=== PATIENT | female | born 1945 | race Caucasian/White ===

== ENCOUNTER 2019-11-17 09:16 | Day surgery (SDC) | payer OTHER, MEDICARE ==
[2019-11-14 11:24] LABS: Absolute Lymphocytes (CBC) 2.7 K/uL (0.7-4.9); Basophils % 0.7 % (0-1.3); Hematocrit 35.2 % (36.0-45.0); RBC Red Blood Cell Count 3.88 M/uL (3.86-4.86)
[2019-11-14 11:26] LABS: Protime INR 0.96
[2019-11-14 11:28] LABS: Potassium 4.8 mmol/L (3.5-5.1)
[2019-11-14 12:21] LABS: Urine Appearance CLEAR; Urine Bilirubin NEGATIVE (NEG); Urine Blood NEGATIVE (NEG); Urine Color YELLOW; Urine Glucose NEGATIVE (NEG); Urine Microscopic Reflex NO UMIC; Urine Protein NEGATIVE (NEG); Urine Specific Gravity 1.015 (1.005-1.030); Urine Urobilinogen 0.2 mg/dL (0.2-1.0); Urine pH 5.5 (5.0-7.0)
--- OUTSIDE RECORDS SUMMARY | 2019-11-17 09:20 | XMS REPORT ---
:1945 Author Organization [employer] Care Team Providers Name Role Phone Sade Schmid Provider Role Unavailable Allergies, Adverse Reactions, Alerts Substance Reaction Event Type penicillin Swelling Drug Allergy Problems Problem Type Condition Code Onset Dates Condition Status Assessment Chronic pain syndrome G89.4 Active Assessment Polyarthralgia M25.50 Active Problem Reflux K21.9 Active Assessment History of recurrent UTI (urinary Z87.440 Active tract infection) Problem Low back pain M54.5 Active Assessment Urinary incontinence, unspecified R32 Active type Problem Chronic diarrhea K52.9 Active Problem Hypertension, unspecified type I10 Active Problem Vaginal lesion N89.8 Active Problem Obesity (BMI 30.0-34.9) E66.9 Active Problem Polyarthralgia M25.50 Active Assessment Hypertension, unspecified type I10 Active Problem Chronic pain syndrome G89.4 Active Assessment Obesity (BMI 30.0-34.9) E66.9 Active Problem Ulcer L98.499 Active Problem Urinary incontinence, unspecified R32 Active type Problem Chest pain, unspecified type R07.9 Active Problem High blood pressure I10 Active Problem Abnormal urinalysis R82.90 Active Problem Swelling R60.9 Active Problem Diverticulitis K57.92 Active Problem Vaginal burning N94.9 Active Problem Other chronic pain G89.29 Active Problem Pain in right knee M25.561 Active Problem Pain in left knee M25.562 Active Problem History of recurrent UTI (urinary Z87.440 Active tract infection) Medications Medication Code Code Instructions Start End Status Dosage System Date Date Pantoprazole ND 31611624186 40 MG Orally Active 1 tablet Sodium Once a day Aleve ND 60089791692 220 MG Orally Active 1 tablet every 12 hrs with food or milk as needed Benazepril HCl ND 18094748227 20 MG Orally Active 1 tablet Once a day Spironolactone ND 02478785091 25 MG Orally Active 1 tablet Once a day Anti-Diarrheal ND 15844786442 2 MG Orally Active 2 tablets Twice a day as needed Aspirin Adult Low [facility] 80416070611 81 MG Orally Active 1 tablet Dose Once a day Oxybutynin [facility] 59609364819 15 MG Oral Active TAKE 1 Chloride ER TABLET BY MOUTH ONCE DAILY Metoprolol [facility] 69741830524 50 MG Orally Active 1 tablet Succinate ER Once a day ProAir HFA [facility] 55056676522 108 (90 Base) Jul 28, Active 2 puffs as MCG/ACT 2019 needed for Inhalation coughing every 4-6 hrs spasms/sob /wheezing Citalopram [facility] 49684031477 20 mg Orally Active 1 tablet Hydrobromide Once a day Cranberry [facility] 85852132059 425 MG Orally Active as directed Isosorbide [facility] 64959312005 30 MG Oral Active TAKE 1 Mononitrate ER TABLET BY MOUTH ONCE DAILY IN THE MORNING FOR 90 DAYS Results No Known Results Summary Purpose [employer]ClinicalWorks Submission
--- OUTSIDE RECORDS SUMMARY | 2019-11-17 09:20 | XMS REPORT ---
:1945 Author Organization [employer] Care Team Providers Name Role Phone Sade Schmid Provider Role Unavailable Allergies, Adverse Reactions, Alerts Substance Reaction Event Type penicillin Swelling Drug Allergy Problems Problem Type Condition Code Onset Dates Condition Status Assessment Respiratory symptoms R09.89 Active Problem Reflux K21.9 Active Assessment Acute pharyngitis, unspecified J02.9 Active etiology Problem Low back pain M54.5 Active Assessment URI, acute J06.9 Active Problem Chronic diarrhea K52.9 Active Problem Hypertension, unspecified type I10 Active Problem Vaginal lesion N89.8 Active Problem Obesity (BMI 30.0-34.9) E66.9 Active Problem Polyarthralgia M25.50 Active Assessment Preoperative examination Z01.818 Active Problem Chronic pain syndrome G89.4 Active Assessment Therapeutic drug monitoring Z51.81 Active Problem Ulcer L98.499 Active Problem Urinary [...] Start End Status Dosage System Date Date Anti-Diarrheal ND 71576879711 2 MG Orally Active 2 tablets Twice a day as needed Pantoprazole ND 09648728212 40 MG Orally Active 1 tablet Sodium Once a day Aspirin Adult Low ND 39784252948 81 MG Orally Active 1 tablet Dose Once a day Benazepril HCl ND 93252803435 20 MG Orally Active 1 tablet Once a day Tramadol HCl ND 41734228931 50 MG Orally June 09, Sep 07, Active 1 tablet Twice a day 2018 2018 as needed for severe pain Citalopram ND 12974741083 20 mg Orally Active 1 tablet Hydrobromide Once a day Metoprolol [facility] 79375163879 50 MG Orally Active 1 tablet Succinate ER Once a day Spironolactone [facility] 85748448142 25 MG Orally February Active 1 tablet Once a day 2019 ProAir HFA [facility] 57653646550 108 (90 Base) Jul 28, Active 2 puffs as MCG/ACT 2018 needed for Inhalation coughing every 4-6 hrs spasms/sob /wheezing Aleve [facility] 22203037541 220 MG Orally Active 1 tablet every 12 hrs with food or milk as needed Cranberry [facility] 35904588950 425 MG Orally Active as directed Results No Known Results Summary Purpose [employer]ClinicalWorks Submission
[2019-11-17] MEDS ORDERED: Ringers Lactate 1,000 ML IV ONE ×2 (10:15→13:00)
[2019-11-17] MEDS ORDERED: CEFAZOLIN/SWI 2gm 2 GM/20 ML SYR ONE (10:50)
[2019-11-17] MEDS ORDERED: NA CHLORIDE 0.9% 100 ML IV ONE (11:16)
[2019-11-17] MEDS ORDERED: NA CHLORIDE 0.9% 1,000 ML ONE (11:16)
[2019-11-17] MEDS ORDERED: CEFAZOLIN/SWI 1gm 1 GM/10 ML SYR ONE (11:17)
[2019-11-17] MEDS: VASOPRESSIN 20 UNIT/ML VIAL ONE ×2 (12:45→13:21)
[2019-11-17] MEDS ORDERED: ONDANSETRON 4 MG/2 ML VIAL ONE (12:54)
[2019-11-17] MEDS ORDERED: ROCURONIUM 50 MG/5 ML VIAL IV ONE (12:54)
[2019-11-17] MEDS ORDERED: LIDOCAINE 2% MPF 5 ML VIAL ONE (12:54)
[2019-11-17] MEDS ORDERED: propofoL 200 MG/20 ML VIAL IV ONE (12:54)
[2019-11-17] MEDS ORDERED: FENTANYL CITR 100 MCG/2 ML ONE ×2 (12:54→13:24)
[2019-11-17] MEDS ORDERED: GLYCOPYRROLATE 0.2 MG/ML SYR ONE (14:12)
[2019-11-17] MEDS ORDERED: NEOSTIGMINE 1 MG/ML -10 ML VIAL ONE (14:20)
[2019-11-17] MEDS ORDERED: PROMETHAZINE INJ 25 MG/ML AMP IV PRN (14:29)
[2019-11-17] MEDS ORDERED: ACETAMINOPHEN 500 MG TAB PO PRN (14:29)
[2019-11-17] MEDS ORDERED: ONDANSETRON 4 MG/2 ML VIAL IV PRN (14:29)
[2019-11-17] MEDS ORDERED: NA CIT/CITRIC AC 30 ML ORAL UDC ONE (14:47)
[2019-11-17] MEDS ORDERED: Ringers Lactate 1,000 ML IV SCH (15:00)
[2019-11-17] MEDS: HYDROMORPHONE HCL 1 MG/ML INJ IV PRN (16:15)
[2019-11-17 16:20] VITALS: BMI 31.2
[2019-11-17] MEDS: IBUPROFEN 600 MG TAB PO PRN (19:40)
[2019-11-17 20:52] VITALS: O2SAT 96
[2019-11-18] MEDS: IBUPROFEN 600 MG TAB PO PRN ×2 (01:43→09:20)
[2019-11-18] MEDS ORDERED: METOPROLOL XL 50 MG TAB PO SCH (06:00)
[2019-11-18 06:03] LABS: Absolute Lymphocytes (CBC) 2.5 K/uL (0.7-4.9); Basophils % 0.5 % (0-1.3); Hematocrit 30.3 % (36.0-45.0); Lymphocytes % 27.8 % (15.3-44.8)
[2019-11-18] MEDS: HYDROMORPHONE HCL 1 MG/ML INJ IV PRN (06:25)
[2019-11-18 07:26] VITALS: BP 117/59; TEMP 98.2
[2019-11-18] MEDS ORDERED: PANTOPRAZOLE 40MG TABLET PO SCH (07:30)
[2019-11-18] MEDS ORDERED: OXYBUTYNIN ER 5 MG TAB PO SCH (09:00)
[2019-11-18] MEDS ORDERED: HOME MED 1 EA UNK (Oxybutynin Chloride [Oxybutynin Chloride Er] 10 MG) PO SCH (09:00)
[2019-11-18] MEDS ORDERED: CITALOPRAM 10 MG TABLET PO SCH (09:00)
[2019-11-18] MEDS ORDERED: BENAZEPRIL 10 MG TAB PO SCH (09:00)
[2019-11-18] MEDS ORDERED: SPIRONOLACTONE 25 MG TABLET PO SCH (09:00)
[2019-11-18] MEDS ORDERED: HOME MED 1 EA UNK (Citalopram Hydrobromide [Citalopram Hbr] 20 MG) PO SCH (09:00)
--- NOTE | 2019-11-18 16:37 | EKG ---
Test Date: 2019-11-17 Test Time: 14:53:29 [facility] Practitioner: CARA MEASUREMENT RESULTS: Intervals: Rate: 65 NM: 214 QRSD: 92 QT: 444 QTc: 461 [place]: P: 45 NM: 214 QRS: 52 T: 27 INTERPRETIVE STATEMENTS: Sinus rhythm with 1st degree AV block Otherwise normal ECG No previous ECG available for comparison Electronically Signed On 11-18-19 16:34:12 SCIENTIST by Georges Coffey
--- NOTE | 2019-12-17 22:56 | OP ---
Date of Procedure: 11/17/2019 Surgeon: Lindsey Candelaria MD Pan Shaker: Mele. Preoperative Diagnoses: Stress urinary incontinence, posterior wall defect (rectocele). Postoperative Diagnoses: Stress urinary incontinence, posterior enterocele, posterior wall defect, ( which is stage II rectocele), and perineal body defect. Procedures Performed: Retropubic mid urethral sling (Advantage Fit), cystoscopy, posterior enterocel e repair, rectocele repair and perineorrhaphy. Anesthesia: General endotracheal. Estimated Blood Loss: Minimal. Urine Output: 100. Complications: No complications. Drains: No drains. Condition: Patient's condition stable. Findings: Her POP-Q -2, -3, -5, 5, moderate 6, 0, +1, and A. Patient does have stage II posterior w all defect. Indication: Patient was symptomatic, tested, all the options of conservative management, pessary, an d surgical management were reviewed. She was consented appropriately and brought to the OR. Description Of Procedure: After informed consent was verified, patient was taken back to the OR. 2 g of Ancef was given. General anesthesia was given and she was placed in supine fashion on the opera ting table. After placing her in a dorsal lithotomy position, pelvic exam performed and POP-Q was ab out. Lower abdomen, vulva, vagina, and perineum were prepped and draped in a sterile fashion. Dinh was placed to drain the bladder and the anterior midline 1 to 1.5 cm proximal to the external meatus was held with an Allis clamp and then 2 other Allis's were placed on either side of the mid urethral area about a centimeter and a half. The UVJ was identified with the help of the Dinh bulb. Dilute vasopressin was injected 10 cc in the midline and on the sides. Then, a scalpel was used to open th e vaginal epithelium, subepithelium, and the dermis. Then, staying under full thickness of the skin after taking a catheter guide and placing it through the urethra into the bladder, the urethra was de viated to the opposite side and then the dissection was performed to open up the space giving access to the retropubic area first on the right side, then the left side. Then, the Advantage Fit legs wer e taken slowly finding the area of the dissection hugging the inferior pubic ramus. Posterior body o f the pubic ramus was used as a guide to stay close to it without actually damaging the periosteum an d going straight up and exiting 2 cm lateral to the area right above the pubic symphysis and from the midline. Then, similar pass was taken on the left side. Then, both the plastic sheaths that were b lue were left in place. Cystoscopy was performed after the Dinh was removed. No evidence of any fo reign body or trauma to the bladder. Both ureteric orifices were unremarkable with good jets of urin e. Scope was pulled out. A Dinh catheter was placed. Again, the sling was tensioned appropriately without making it too tight, however, not leaving it too lose. Then, the plastic sheath along with the plastic dilators were pulled out through the top gently and then the mesh was irrigated, closed w ith the help of a 3-0 Vicryl in a continuous running horizontal mattress fashion. There was no need to repair the defect. In the anterior wall, top of the vagina was well suspended a nd no need for colpopexy as well. Then, 2 Allis's were placed at the hymenal ring. Injection of dil kajal vasopressin was given in the midline on both sides with 20 mL. Then, a trudy-shaped incision w as made in the posterior half of the vaginal wall and the vaginal epithelium and subepithelium dissec jessika. Rectovaginal space was accessed laterally. Dissection was performed to separate the rectovagin al septum from the overlying tissues, and once all the connective tissue was well exposed superiorly, dissection was performed to open the posterior wall. There was an enterocele that was closed with t felice help. After dissecting fully, was closed with the help of a 3-0 Monocryl in a continuous running pursestring fashion. Then, PDS was taken and the posterior vaginal wall was repaired using this in a continuous running horizontal mattress fashion coming down all the way to the level of the perineal body. Here, the perineal body was reconstructed with the help of a 2-0 Vicryl suture x2 and then, th e PDS was run through the perineal body reattaching the detached posterior septum from this area. Th en, the excess tissue was trimmed out on the vaginal flaps. Then, continuous running 2-0 Vicryl clos ure was done with an excellent result. Perineal defect was repaired to bring the deep transverse per ineal muscles and the scar on top of them together with 2-0 Vicryl interrupted sutures. Once these w ere placed, then 3-0 Vicryl was run down in a subcutaneous fashion and run backup in subcuticular fas hion and the suture knot tied inside the vestibule. Instruments, needle, and sponge counts were valent[place] ect. Patient tolerated the procedure well. No complications. Minimal EBL. She was recovered from anesthesia and taken to PACU in stable condition. Her Dinh output had optimal amount of urine. SK/MODL Voice ID: [id number] Report ID: [id number]
== END 2019-11-18 10:00 | disposition home or self-care (01) ==
LOC: OR 09:16 → 2ND-WC 14:30 → OR 11-18 10:00
PROVIDERS: ATTEND Obstetrics & Gynecology
PROC: 0TSD4ZZ Reposition Urethra, Percutaneous Endoscopic Approach (ICD-10-PCS; principal; 2019-11-18)
PROC: 0UQF0ZZ Repair Cul-de-sac, Open Approach (ICD-10-PCS; 2019-11-18)
PROC: 0JQC0ZZ Repair Pelvic Region Subcutaneous Tissue and Fascia, Open Approach (ICD-10-PCS; 2019-11-18)
PROC: 0HQ9XZZ Repair Perineum Skin, External Approach (ICD-10-PCS; 2019-11-18)
DX: N39.3 Stress incontinence (female) (male) (principal); N81.4 Uterovaginal prolapse, unspecified; N32.81 Overactive bladder; N95.2 Postmenopausal atrophic vaginitis
CPT/HCPCS: 93005; 85025 ×2; 80048; 36415 ×2; 86900; 86850; 85610; 86901; 85730; 81003; 57288; 57265; J2704; J2710; J3010 ×2; J1170 ×2; J0690 ×2; J7120 ×5; J7030; J2405